=== PATIENT | female | born 1995 | race Caucasian/White ===

== ENCOUNTER 2022-10-02 09:26 | Outpatient (CLI) | payer BC, SELFPAY ==
--- NOTE | ~2022-10-02 | US_ITS ---
Pelvic ultrasound. Clinical History: Pelvic pain Technique: Realtime transabdominal and transvaginal scanning of the pelvis was performed. Color flow Doppler and Doppler spectral analysis were performed. Findings: The uterus is anteverted. The endometrial stripe has a thickness of 4 mm. No focal mass is identified. The right ovary measures 2.6 x 3.6 x 2.6 cm. No significant right ovarian or adnexal mass is seen. The left ovary measures 2.9 x 2.2 x 3.2 cm. No significant left ovarian or adnexal mass is seen. Vascular flow present in both ovaries. There is no evidence of free fluid in the cul de sac. Impression: No significant abnormality seen. Reviewed, dictated and finalized at [facility]. 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
== END 2022-10-02 09:27 ==
PROVIDERS: PCP Nurse Practitioner; Visit Provider Obstetrics & Gynecology Gynecology
DX: R10.2 Pelvic and perineal pain (principal)
CPT/HCPCS: 76830